=== PATIENT | male | born 1975 | race Caucasian/White ===

== ENCOUNTER 2023-06-15 06:20 | Day surgery (SDC) | payer MEDICARE ==
--- NOTE | 2023-06-13 12:00 | RAD REPORT ---
EXAM DESCRIPTION: RAD - Chest Pa And Lat (2 Views) - 06/13/2023 11:54 am CLINICAL HISTORY: PREOP Chest pain. COMPARISON: No comparisons FINDINGS: The lungs are clear. The heart is normal in size. No displaced fractures. IMPRESSION: No acute or concerning finding suspected.
[2023-06-13 12:03] LABS: Absolute Eosinophils 0.1 K/uL (0-0.5); Absolute Lymphocytes (CBC) 1.2 K/uL (0.7-4.9); Basophils % 0.6 % (0-1.3); Eosinophils % 2.1 % (0-4.4); Hematocrit 43.9 % (39.6-49.0); Hemoglobin 15.5 g/dL (13.6-17.9); Lymphocytes % 29.4 % (15.3-44.8); MCV 88.3 fL (80-100); MPV 8.3 fL (7.6-11.3); Platelets 67 thou/uL (152-406); RBC Red Blood Cell Count 4.97 M/uL (4.33-5.43)
[2023-06-13 12:05] LABS: Anion Gap 9.1 mEq/L (5.0-15.0); Potassium 4.1 mEq/L (3.5-5.1)
[2023-06-13 13:10] LABS: Blood Morphology Comment NOT SEEN (NOT SEEN); Platelet Estimate DECR; White Blood Cell Scan OK (OK)
--- NOTE | 2023-06-13 16:05 | EKG ---
Test Date: 2023-06-13 Test Time: 12:33:48 Commodity Manager: JACKSON MEASUREMENT RESULTS: Intervals: Rate: 56 NH: 160 QRSD: 102 QT: 394 QTc: 380 [place]: P: 65 NH: 160 QRS: 69 T: 64 INTERPRETIVE STATEMENTS: Sinus bradycardia Otherwise normal ECG Compared to ECG 12/23/2021 15:49:24 Sinus rhythm no longer present Electronically Signed On 06-13-23 16:04:25 ICT PROGRAMMER by Axel Sarah
[2023-06-15] MEDS ORDERED: Ringers Lactate 1,000 ML IV ONE (06:44)
[2023-06-15] MEDS ORDERED: ONDANSETRON 4 MG/2 ML VIAL ONE (06:52)
[2023-06-15] MEDS ORDERED: KETOROLAC 30 MG/ML INJ ONE (06:52)
[2023-06-15] MEDS ORDERED: propofoL 200 MG/20 ML VIAL IV ONE (06:52)
[2023-06-15] MEDS ORDERED: FENTANYL CITR 100 MCG/2 ML ONE (06:52)
[2023-06-15] MEDS ORDERED: LIDOCAINE 1% MPF 5 ML VIAL ONE (06:52)
[2023-06-15] MEDS ORDERED: MIDAZOLAM HCL 2 MG/2 ML INJ ONE (06:53)
[2023-06-15] MEDS: CEFAZOLIN SODIUM 1 GM/VIAL ONE (07:55)
[2023-06-15] MEDS ORDERED: GLYCOPYRROLATE 0.2 MG/ML SYR ONE (07:57)
[2023-06-15] MEDS ORDERED: EPHEDRINE SULF 50 MG/ML VIAL ONE (08:17)
--- NOTE | 2023-06-15 08:51 | P.BOP ---
Preoperative diagnosis: back basal cell carcinoma, face & L arm ulcerated skin hyperpig skin mass Postoperative diagnosis: same Primary procedure: 1.Wide excision with frozen section back basal cell carcinoma Secondary procedure: 2.Wide excision with frozen section facial skin lesion Other procedure(s): 3.Wide excision with frozen section left arm skin mass Estimated blood loss: <10cc Specimen: x3 Findings: margins free of tumor per Dr De La Cruz Anesthesia: General Complications: None Transferred to: Recovery Room Condition: Good
[2023-06-15 09:53] VITALS: TEMP 96.9
[2023-06-15 10:22] VITALS: O2SAT 100
--- NOTE | 2023-06-15 10:27 | OP ---
Date of Procedure: 06/15/2023 Surgeon: Jimmy Proctor MD Preoperative Diagnosis: Basal cell carcinoma over the back with hyperpigmented ulcerated lesions and raised lesions over the face and left arm. Postoperative Diagnosis: Basal cell carcinoma over the back with hyperpigmented ulcerated lesions an d raised lesions over the face and left arm. Procedures: 1.Wide excision with frozen section of back basal carcinoma. 2.Wide excision with frozen section of facial skin lesion. 3.Wide excision with frozen section of left arm skin mass. Estimated Blood Loss: Less than 10 cc. Specimens: X3. Findings: Margins free of tumor per Dr. De La Cruz. Anesthesia: General plus local. Indications: This is the case of a 48-year-old patient who comes with 3 areas of 3 lesions. The one on the back is already diagnosed by the parimutuel cashier as a basal carcinoma. He has one in the right face that is ulcerated and sometimes bleed, that the initial scrape biopsy by Pathology shows a type of keratosis. He wants that area excised because it is bleeding and it is ulcerated. Also, he has a raised lesion on the left arm, also suspicious for cancer, he wants excised. So, the benefits, alt ernatives, and risks of wide excision of those 3 lesions with frozen section fully explained to the p atient which include, but not limited to infection, bleeding, damage to adjacent structures, anesthes ia complication, recurrence, PR, and even . He also understands this may not relieve any sympto ms. He might need more than one surgical intervention depending on the final pathology. He understo od, signed a consent. The area of concern was marked by me and the patient in the holding room. The one in the back, we se e the previous scars from previous Dermatology biopsy and although he has some of the other lesions o n his back that need to be checked by the parimutuel cashier, this was the one that we agree is the pathol ogy biopsy due to the eschar present since already there are no open ulcers in that region. The lesi ons are there but no open area. He helped me to identify the lesion and we marked that one. Description Of Procedure: We had to do this in different stages because we have this in the front an d back, so we proceeded to do the back and the face in the same setting, but we have 2 separate instr uments, so we were not creating a cross contamination between the back and the facial and arm lesions . So, all the instruments were . We prepped individually and also our gloves and gowns we re changed. The patient was brought to operating room, placed in supine position. Anesthesia was without complic ation. Patient was placed in lateral decubitus position with proper protection. The face and back w ere prepped and draped in a sterile fashion. A time-out was called. After that, we proceeded to do this using the same technique, each one of them once again individually. We did a wedge incision on the skin all the way down to subcutaneous tissue. Margin sent for orientation. Pathology comes back with free margins and then we proceeded to close the area with 3-0 chromic and skin with 3-0 nylon. The patient tolerated each procedure well. I have to mention that although it sounds short in this dictation, it was a process because we have to scrub and redrape again and also to be able to do the arm, we had to move the patient from a lateral decubitus position to supine position and rescrub him again. At the end, all the margins were free. So, the patient was sent to recovery in stable condit ion and patient will be discharged home. CARLYLE/MARIE Voice ID: [id number] Report ID: [id number]
--- NOTE | 2023-06-15 10:30 | DS ---
Diagnosis: Basal carcinoma and skin masses over the back, face, and arm. Procedure: Wide excision with frozen section of back, face, and arm lesions/basal carcinoma. Disposition: Home. Keep area dry for 48 hours, then may shower. Cover the area with triple antibio tics and Band-Aid. CARLYLE/MARIE Voice ID: [id number] Report ID: [id number]
[2023-06-15] MEDS ORDERED: CODEINE 30MG/APAP 300MG TAB ONE (10:49)
[2023-06-15 10:51] VITALS: BP 130/74
== END 2023-06-15 11:08 | disposition home or self-care (01) ==
LOC: OR 06:20
PROVIDERS: ATTEND Surgery
PROC: 0HB1XZZ Excision of Face Skin, External Approach (ICD-10-PCS; 2023-06-15)
PROC: 0HBCXZZ Excision of Left Upper Arm Skin, External Approach (ICD-10-PCS; 2023-06-15)
PROC: 0JB70ZZ Excision of Back Subcutaneous Tissue and Fascia, Open Approach (ICD-10-PCS; principal; 2023-06-15 07:30)
DX: C44.519 Basal cell carcinoma of skin of other part of trunk (principal); L57.0 Actinic keratosis; K74.60 Unspecified cirrhosis of liver; K21.9 Gastro-esophageal reflux disease without esophagitis
CPT/HCPCS: 93005; 85025; 80048; 36415; 88304; 71046; 11603; 11443; 11402; J2704; J2001; J2250; J3010; J2405; J7120; J0690; 88305; 88331; 88332